=== PATIENT | female | born 1945 | race Caucasian/White ===

== ENCOUNTER 2016-12-21 11:43 | Emergency (ER) | payer MEDICARE, OTHER ==
[~2016-12-21] VITALS: Ht 165.1 cm; Wt 70.9 kg
[~2016-12-21 11:43] MED LIST: FEXO180T85 PO; MULT-621 PO; OMEG300C3 PO; OMEP-113 PO; SIMV10TA4 PO
[2016-12-21 11:44] VITALS: BP 212/100; PULSE 72; RESP 15; O2SAT 100
--- NOTE | 2016-12-21 12:32 | ED.REPORT ---
HPI-General Illness Date of Service December 21, 2016 ED Provider: The patient is a 71 year old female with history of high cholesterol and GERD, who presents to the emergency department complaining of high blood pressure. The patient was recently seen by her regular doctor Dr. Bae for 6 weeks of shoulder pain. She was started on Meloxicam for her shoulder pain. During this visit her blood pressure was found to be elevated at [address] Bae recommended that she take her blood pressure three times each week and if it is not going down she should come back. The patient went to measure her blood pressure today and it was at 220 systolic. She has noticed some dizziness, fuzziness, and some shortness of breath with exertion. She denies visual changes , numbness, weakness, fever, cough, chest pain, nausea or vomiting. The patient had hypertension in her 20's that was attributed to the control that she was taking. Her brother at 69 of a massive stroke. Nursing Notes Stated Complaint: HIGH BLOOD PRESSURE Chief Complaint: General Complaint Nursing Notes Reviewed: Yes Allergies: Coded Allergies: Penicillins (Verified Allergy, Intermediate, rash, 12/21/16) Scheduled Fexofenadine (Beata Allergy) 180 Mg Tablet 180 MG PO DAILY Labetalol (Labetalol) 100 Mg Tablet 100 MG PO BID Omeprazole Magnesium (Omeprazole) 20 Mg Capsule.dr 20 MG PO DAILY Simvastatin (Simvastatin) 10 Mg Tablet 10 MG PO HS Miscellaneous Medications Multivitamin with Minerals (Multiple Vitamin) 1 Each Tablet 1 EACH PO [place]-3 Fatty Acids (Fish Oil) 300 Mg Capsule Unknown Dose PO General Time Seen by MD: 12:32 Chief Complaint Other (high blood pressure) Hx Obtained From: Patient, Spouse Arrived By: Walk-in Sudden in Onset?: No Onset Occurred: More than a week ago... Symptom Duration: Intermittent Severity: Current: No pain currently Severity: Maximum: No pain Recent Healthcare: No recent hospitalization, Recent doctor visit Similar Sx Previous: Yes Past Medical History Past Medical History High cholesterol GERD Past Surgical History Ectopic surgery Family History Her brother at 69 from a massive stroke Smoking History Never Smoker Social History Drug Use: Denies drug use Other Social History: Good social support, , Local resident Ambulatory Status Independent Review of Systems +elevated blood pressure, fuzziness Full Review of Systems Constitutional: Denies: Fever Respiratory: Reports: Dyspnea on exertion, Denies: Non-productive cough Cardiovascular: Denies: Chest pain GI: Denies: Nausea, Vomiting Neurologic: Reports: Dizziness, Denies: Focal weakness, Numbness Complete sys rev & neg: except as marked. Physical Exam Vital Signs Vital Signs Date Time Temp Pulse Resp B/P Pulse Ox O2 Delivery O2 Flow Rate FiO2 12/21/16 14:17 177/83 12/21/16 13:14 61 193/67 12/21/16 11:44 36.2 72 15 212/100 100 Initial VS: Reviewed Head / Eyes: Atraumatic, Normocephalic, PERRL ENT: Mucous membranes moist, Conjunctiva normal, No scleral icterus Neck: Supple, Non-tender, Full range of motion Respiratory: Breath sounds normal, Clear to auscultation, No respiratory distress Cardiovascular: Regular rate & rhythm, Heart sounds normal, Intact distal pulses Abdomen / GI: Soft, Non-tender, No guarding, No rebound, No distention Lymphatic: No lymphadenopathy Extremities: Vascular intact, Neuro intact, No swelling, No tenderness Skin: Warm, Dry, No cyanosis Neurologic: Alert, Oriented, Nonfocal Psychiatric: Mood/affect normal, Behavior normal, Normal thought content General/Constitutional: Awake, Alert, Cooperative Interpretation & Diagnostics Lab Results Interpretation Result Diagram: 12/21/16 1330 12/21/16 1330 Test 12/21/16 13:30 White Blood Count 5.0th/mm3 (3.8-10.1) Red Blood Count 4.43mil/mm3 (3.90-5.20) Hemoglobin 13.4g/dL (12.0-15.6) Hematocrit 39.4% (35.0-46.0) Mean Corpuscular Volume 88.9fL (81-100) Mean Corpuscular Hemoglobin 30.2pg (27.0-35.0) Mean Corpuscular Hemoglobin Concent 34.0% (32.0-37.0) Red Cell Distribution Width 13.2% (12.3-15.4) Platelet Count 177bil/L (150-400) Neutrophils (%) (Auto) 59.1% (40-74) Lymphocytes (%) (Auto) 27.4% (14-46) Monocytes (%) (Auto) 9.5% (4-12) Eosinophils (%) (Auto) 2.8% (0-5) Basophils (%) (Auto) 1.0% (0-3) Sodium Level 142mEq/L (134-144) Potassium Level 5.0mEq/L (3.5-5.2) Chloride Level 105mEq/L (97-108) Carbon Dioxide Level 26mmol/L (18-29) Blood Urea Nitrogen 19mg/dL (8-27) Creatinine 0.66mg/dL (0.57-1.00) Estimat Glomerular Filtration Rate 127mL/min (>59) Glucose Level 104mg/dL (60-99) Calcium Level 9.7mg/dL (8.5-10.1) Magnesium Level 2.1mg/dL (1.6-2.6) Total Bilirubin 0.4mg/dL (0.0-1.2) Aspartate Amino Transf (AST/SGOT) 26U/L (0-50) Alanine Aminotransferase (ALT/SGPT) 17U/L (0-32) Alkaline Phosphatase 54U/L (25-165) Total Protein 6.8g/dL (6.4-8.4) Albumin 4.4g/dL (3.4-5.0) ECG Interpretation ECG Interpretation: Normal sinus rhythm with a rate of 60 Time: 12:54 Interpreted by: ED physician Rhythm Strip Interpretation : Rhythm Strip Interpretation: Sinus rhythm at 72 bpm Time: 12:39 Rhythm Strip Interpretation: Interpreted by me Re-Eval/Medical Decision Source of Hx: Old records, Family Time of Eval: 14:24 Re-Evaluation/Progress Note: Rechecked the patient. Discussed EKG and lab results, diagnosis, and plan for discharge. Her repeat blood pressure at this time was 197/76. Will give an additional dose of IV Lebatolol and recheck prior to discharge. Time of Eval: 15:17 Re-Evaluation/Progress Note: Rechecked the patient. Her blood pressure has improved. Discussed plan for discharge. Counseled Regarding: Diagnosis, Lab results, Need for follow-up, When/why to return to ED Discharge & Departure Primary Impression: Hypertension Hypertension type: unspecified secondary hypertension Qualified Code: I15.9 - Secondary hypertension, unspecified Disposition: Home Discharge Condition All VS Reviewed: Yes Condition: Stable Patient Instructions: Hypertension (ED) Additional Instructions: Thank you for entrusting us with your care today. Your workup today is reassuring. Take labetalol 100 mg twice daily. I have only given 5 tablets because I wanted Dr[address] Bae to make a decision about whether or not to continue this versus starting some other medication. Keep your appointment with Dr. Bae tomorrow. Return to the emergency department for any new or concerning symptoms, such as severe headache, vision change, shortness of breath or chest pain. Take your blood pressure in a cold environment while seated for at least 5 minutes. Do this one or 2 times daily and record the results. Referrals: Martinez Bae MD Attestation Portions of this note were transcribed by Marlyn Frye. I, Dr. Blanc personally performed the history, physical exam and medical decision-making; I reviewed and confirmed the accuracy of the information in the transcribed note. Signed by: Cecilia Valverde, 12/21/2016 at 1525. copies to: Martinez Bae MD, Kirk H MD December 21, 2016 12:32 Marlyn Frye December 21, 2016 12:39
[2016-12-21] MEDS ORDERED: Labetalol 5 mg/mL 4 mL Inj IVPUSH ONE ×2 (12:40→14:15)
[2016-12-21 13:14] VITALS: BP 193/67; PULSE 61
[2016-12-21 13:40] LABS: EOSINOPHILS % (AUTO) 2.8 % (0-5); MONOCYTES % (AUTO) 9.5 % (4-12); Mean Corpuscular Hemoglobin 30.2 pg (27.0-35.0); Mean Corpuscular Volume 88.9 fL (81-100); NEUTROPHILS % (AUTO) 59.1 % (40-74); Platelet Count 177 bil/L (150-400)
[2016-12-21 14:15] LABS: Magnesium 2.1 mg/dL (1.6-2.6)
[2016-12-21 14:17] VITALS: BP 177/83
[2016-12-21] MEDS ORDERED: LABE100T4 PO (15:20)
[2016-12-21 15:23] VITALS: BP 164/79; PULSE 56; RESP 15; O2SAT 100
== END 2016-12-21 15:27 | disposition home or self-care (01) ==
LOC: SED 11:43
DX: I15.9 Secondary hypertension, unspecified (principal); R42 Dizziness and giddiness; R06.02 Shortness of breath; K21.9 Gastro-esophageal reflux disease without esophagitis; Z88.0 Allergy status to penicillin